=== PATIENT | female | born 1975 | race Caucasian/White ===

== ENCOUNTER 2016-12-09 15:55 | Emergency (ER) | payer OTHER ==
[~2016-12-09 15:55] MED LIST: CIPROFLOXACN500 MG PO; KLONOPIN0.5 MG PO; TRAZODONE100 MG PO
[2016-12-09 16:02] VITALS: BP 131/89
[2016-12-09 17:44] LABS: URINE BILIRUBIN - DIPSTICK NEGATIVE (NEGATIVE); URINE BLOOD DIPSTICK NEGATIVE (NEGATIVE); URINE CLARITY CLEAR; URINE COLOR YELLOW; URINE GLUCOSE - DIPSTICK NEGATIVE (NEGATIVE); URINE KETONE NEGATIVE (NEGATIVE); URINE LEUK ESTERASE NEGATIVE (NEGATIVE); URINE NITRITE - DIPSTICK NEGATIVE (Negative); URINE PH 5.5 (4.5-8.0); URINE PROTEIN - DIPSTICK NEGATIVE (NEG-TRACE)
[2016-12-09 17:48] LABS: HEMATOCRIT 32.5 % (37.0-47.0); IMMATURE GRANULOCYTES 0.4 % (0.0-1.0); MEAN CELL VOLUME 74.5 fL CALC (80.0-100.0); MEAN CORPUSCULAR HGB 22.9 pG CALC (26.0-32.0); MEAN CORPUSCULAR HGB CONC 30.8 g/L CALC (32.0-36.0); NEUT# 4.51 thou/uL (2.00-7.15); RED BLOOD COUNT 4.36 mill/uL (4.20-5.60); RED CELL DISTRI WIDTH 19.4 % (11.5-15.5)
[2016-12-09 18:02] LABS: ALBUMIN 4.1 g/dL (3.2-5.0); ALKALINE PHOSPHATASE 91 u/l (38-126); ANION GAP 17 (6-22 (CALC)); BILIRUBIN, TOTAL 0.5 mg/dL (0.0-1.4); BUN 12 mg/dL (7-17); BUN/CREATININE RATIO 18 (12-20 (CALC)); CALCIUM 8.8 mg/dL (8.4-10.2); CARBON DIOXIDE 22 mmol/l (22-30); CHLORIDE 103 mmol/l (95-108); CREATININE 0.6 mg/dL (0.5-1.0); GFR > 60 ML/MIN (>=60 (CALC)); GFR FOR AFR.AMER. > 60 ML/MIN (>=60 (CALC)); GLUCOSE 94 mg/dL (65-105); POTASSIUM 4.4 mmol/l (3.5-5.1); SGOT/AST 21 u/l (14-36); SGPT/ALT 31 u/l (9-52); SODIUM 138 mmol/l (137-146); TOTAL PROTEIN 7.2 g/dL (6.3-8.2)
[2016-12-09] MEDS ORDERED: ULTRAM50 M1 PO (18:48)
[2016-12-09] MEDS ORDERED: CEPHALEXIN500 MG PO (18:48)
== END 2016-12-09 18:58 | disposition home or self-care (01) | DRG 816 ==
LOC: ED 15:55
PROVIDERS: Emergency Medicine
DX: I88.8 Other nonspecific lymphadenitis (principal); R50.9 Fever, unspecified

== ENCOUNTER 2017-07-24 06:26 | Emergency (ER) | payer OTHER ==
[~2017-07-24] VITALS: Ht 162.6 cm; Wt 92.0 kg
[~2017-07-24 06:26] MED LIST changes: +CEPHALEXIN500 MG PO; +ULTRAM50 M1 PO
[2017-07-24] MEDS ORDERED: TRAMADOL HYDROC50 MG PO (07:42)
[2017-07-24 08:02] VITALS: BP 135/74
== END 2017-07-24 08:15 | disposition home or self-care (01) | DRG 563 ==
LOC: ED 06:26
DX: S83.241A Other tear of medial meniscus, current injury, right knee, initial encounter (principal)
CPT/HCPCS: L1830

== ENCOUNTER 2018-08-06 12:40 | Emergency (ER) | payer OTHER ==
[~2018-08-06] VITALS: Ht 162.6 cm; Wt 86.0 kg
[~2018-08-06 12:40] MED LIST changes: +TRAMADOL HYDROC50 MG PO
[2018-08-06] MEDS ORDERED: GABAPENTIN100 MG PO (13:09)
[2018-08-06] MEDS ORDERED: PROZAC20 MG PO (13:09)
[2018-08-06] MEDS ORDERED: CLONIDINE0.1 MG PO (13:10)
[2018-08-06 14:58] LABS: URINE BILIRUBIN - DIPSTICK NEGATIVE (NEGATIVE); URINE BLOOD DIPSTICK NEGATIVE (NEGATIVE); URINE COLOR YELLOW; URINE GLUCOSE - DIPSTICK NEGATIVE (NEGATIVE); URINE KETONE TRACE mg/dL (NEGATIVE); URINE LEUK ESTERASE NEGATIVE (NEGATIVE); URINE NITRITE - DIPSTICK NEGATIVE (Negative); URINE PH 5.5 (4.5-8.0); URINE PROTEIN - DIPSTICK NEGATIVE (NEG-TRACE); URINE SPECIFIC GRAVITY <=1.005; URINE UROBILINOGEN - DIPSTICK 0.2 E.U./dL (0.2)
[2018-08-06 14:59] LABS: HEMATOCRIT 35.1 % (37.0-47.0); HEMOGLOBIN 11.1 g/dl (12.0-16.0); IMMATURE GRANULOCYTES 0.3 % (0.0-5.0); MEAN CORPUSCULAR HGB 26.9 pG CALC (26.0-32.0); MEAN CORPUSCULAR HGB CONC 31.6 g/L CALC (32.0-36.0); NEUT# 4.13 thou/uL (2.00-7.15); RED BLOOD COUNT 4.13 mill/uL (4.20-5.60); RED CELL DISTRI WIDTH 19.2 % (11.5-15.5)
[2018-08-06 15:16] LABS: ALBUMIN 4.8 g/dL (3.2-5.0); ALKALINE PHOSPHATASE 101 u/l (38-126); ANION GAP 16 (6-22 (CALC)); BILIRUBIN, TOTAL 1.1 mg/dL (0.0-1.4); BUN 9 mg/dL (7-17); BUN/CREATININE RATIO 17 (12-20 (CALC)); CARBON DIOXIDE 25 mmol/l (22-30); CHLORIDE 98 mmol/l (95-108); CREATININE 0.5 mg/dL (0.5-1.0); GFR > 60 ML/MIN (>=60 (CALC)); GFR FOR AFR.AMER. > 60 ML/MIN (>=60 (CALC)); POTASSIUM 4.3 mmol/l (3.5-5.1); SGOT/AST 30 u/l (14-36); SODIUM 136 mmol/l (137-146)
[2018-08-06 15:43] VITALS: BP 129/74
[2018-08-06] MEDS ORDERED: PROTONIX40 MG PO (15:50)
== END 2018-08-06 16:16 | disposition home or self-care (01) | DRG 93 ==
LOC: ED 12:40
DX: R43.8 Other disturbances of smell and taste (principal); R10.13 Epigastric pain; K27.9 Peptic ulcer, site unspecified, unspecified as acute or chronic, without hemorrhage or perforation; K21.9 Gastro-esophageal reflux disease without esophagitis; Z98.84 Bariatric surgery status
CPT/HCPCS: S0164

== ENCOUNTER 2021-07-17 17:03 | Observation (INO) | payer OTHER ==
[~2021-07-17] VITALS: Ht 162.6 cm; Wt 88.0 kg
[~2021-07-17 17:03] MED LIST changes: +CLONIDINE0.1 MG PO; +GABAPENTIN100 MG PO; +PROTONIX40 MG PO; +PROZAC20 MG PO
--- NOTE | 2021-07-17 17:45 | NUR ---
PT AMB TO ROOM HOLDING HER STOMACH
--- NOTE | 2021-07-17 18:28 | NUR ---
PATIENT MEDICATED PER ORDERD. SHE IS AWARE OF PLAN OF CARE AND WAIT TIME. CALL VALENTINE WITHIN REACH.
[2021-07-17 18:45] LABS: HEMATOCRIT 37.5 % (37.0-47.0); HEMOGLOBIN 11.5 g/dl (12.0-16.0); IMMATURE GRANULOCYTES 0.2 % (0.0-5.0); MEAN CORPUSCULAR HGB 24.4 pG CALC (26.0-32.0); MEAN CORPUSCULAR HGB CONC 30.7 g/dL CAL (32.0-36.0); NEUT# 9.39 thou/uL (2.00-7.15); RED BLOOD COUNT 4.71 mill/uL (4.20-5.60); RED CELL DISTRI WIDTH 15.1 % (11.5-15.5)
[2021-07-17 18:46] LABS: MEAN CELL VOLUME 79.6 fL CALC (80.0-100.0)
--- NOTE | 2021-07-17 19:00 | NUR ---
REPORT TO VERONICA RAWLS.
[2021-07-17 19:01] LABS: ALBUMIN 4.7 g/dL (3.2-5.0); ALKALINE PHOSPHATASE 93 u/l (38-126); AMYLASE 70 u/l (30-110); ANION GAP 18 (6-22 (CALC)); BILIRUBIN, TOTAL 0.8 mg/dL (0.0-1.4); BUN 15 mg/dL (7-17); BUN/CREATININE RATIO 21 (12-20 (CALC)); CARBON DIOXIDE 22 mmol/l (22-30); CHLORIDE 100 mmol/l (95-108); CREATININE 0.7 mg/dL (0.5-1.0); ETHYL ALCOHOL 0 mg/dl (0-30); GFR > 60 ML/MIN (>=60 (CALC)); GFR FOR AFR.AMER. > 60 ML/MIN (>=60 (CALC)); LIPASE 77 u/l (23-300); POTASSIUM 4.1 mmol/l (3.5-5.1); SGOT/AST 26 u/l (14-36); SODIUM 135 mmol/l (137-146); TOTAL PROTEIN 8.2 g/dL (6.3-8.2)
--- NOTE | 2021-07-17 19:17 | NUR ---
PT MOVED TO ROOM 8, HIGHER LEVEL OF CARE INDICATED
--- NOTE | 2021-07-17 19:30 | NUR ---
PT REPORTS PAIN IMPROVED AFTER MEDICATION, BUT CAN TELL IT IS NOW RETURNING. PT RATES PAIN AT 7/10. PT WITH +BOWEL SOUNDS X4. URINE COLLECTED AND TO LAB. PT WITH CALL LIGHT IN REACH, SO AT THE BEDSIDE. PT STABLE.
--- NOTE | 2021-07-17 19:56 | NUR ---
PT ABLE TO PROVIDE URINE, COLLECTED AND TO LAB. PT RESTING, LYING ON LEFT SIDE. PT DENIES NEEDS, SON AT THE BEDSIDE.
[2021-07-17 20:18] LABS: URINE BILIRUBIN - DIPSTICK NEGATIVE (NEGATIVE); URINE BLOOD DIPSTICK MODERATE (NEGATIVE); URINE COLOR YELLOW; URINE GLUCOSE - DIPSTICK NEGATIVE (NEGATIVE); URINE KETONE 15 mg/dL (NEGATIVE); URINE LEUK ESTERASE NEGATIVE (NEGATIVE); URINE PROTEIN - DIPSTICK NEGATIVE (NEG-TRACE); URINE UROBILINOGEN - DIPSTICK 0.2 E.U./dL (0.2)
[2021-07-17 20:24] LABS: URINE NITRITE - DIPSTICK NEGATIVE (Negative)
--- NOTE | 2021-07-17 20:30 | NUR ---
PT RESTING ON ED BED WITH WARM BLANKET. PT'S AT THE BEDSIDE. ADVISED OF WAIT TIME. DENIES NEEDS.
[2021-07-17 20:36] LABS: URINE SQUAMOUS EPITHELIAL CELL FEW EPI/hpf (0-FEW)
--- NOTE | 2021-07-17 20:50 | NUR ---
CALL PLACED TO MED/SURG TO GIVE SBAR REPORT-NO ONE AVAILABLE AT THIS TIME.
--- NOTE | 2021-07-17 21:21 | NUR ---
SBAR REPORT CALLED TO VERONICA CAMARA
--- NOTE | 2021-07-17 21:25 | NUR ---
PT TAKEN BY WHEELCHAIR TO MED/SURG. PAPERWORK AND BELONGINGS HANDED OFF TO VERONICA CAMARA. PT IN STABLE CONDITION AT TIME OF ADMISSION.
--- NOTE | 2021-07-17 21:30 | NUR ---
PT RESTING ON ED BED, AT THE BEDSIDE. PT ADVISED OF WAIT TIME. DENIES NEEDS AT THIS TIME.
[2021-07-17 21:34] VITALS: BP 120/68
--- NOTE | 2021-07-17 22:29 | NUR ---
PATIENT ADMITTED FROM ER VIA WHEELCHAIR WITH ER STAFF IN ATTENDANCE. PATIENT IS ABLE TO TRANSFER TO THE BED HERSELF. PATIENT ADMITTED FOR BOWEL OBSTRUCTION. STATES THAT SHE HAS BEEN HAVE ABD PAIN FOR A FEW DAYS AND CAME IN TO THE ER TO HAVE EVALUATED. ABD IS SOFT WITH BS+. LAST BM WAS YESTERDAY AND WAS NORMAL PER PATIENT. DEN IES ANY DIFFICULTY WITH URINATION. LAST MENSTRAL CYCLE STARTED 07/16/21. LUNGS ARE CLEAR. NO PERIPHERAL EDEMA NOTED. PULSES ARE PALPABLE. IV SITE TO RAC INTACT-GOOD BLOOD RETURN. IVF NS HUNG AND INFUSING AT 125CC/HR. PATIENT IS ON CLEAR LIQUIDS AND PROVIDED WITH SOME APPLE JUICE PER PATIENT REQUEST. ORIENTED TO ROOM AND SURROUNDINGS. INSTRUCTED ON USE OF NURSE CALL LIGHT SYSTEM AND TV REMOTE. SAFETY PRECAUTIONS REINFORCED. CALL LIGHT IN REACH. WILL CONT TO MONITOR.
[2021-07-18] VITALS: BP 94/55
[2021-07-18 04:00] VITALS: BP 93/49
--- NOTE | 2021-07-18 04:28 | NUR ---
PATIENT RESTING IN BED WITH EYES CLOSED AND RESPS EVEN AND UNLABORED AT THIS TIME. IVF PATENT AND INFUSING VIA RAC SITE AT 125CC/HR. SITE REMAINS HEALTHY AT THIS TIME. CALL LIGHT IN REACH. WILL CONT TO MONITOR.
[2021-07-18 08:15] VITALS: BP 90/52
--- NOTE | 2021-07-18 08:15 | NUR ---
PATIENT IS RESTING IN BED. ASSESSMENT DONE. PATIENT IS ALERT AND ORIENT X3. PATIENT DENIES PAIN. PATIENT STATED SHE HAD A SMALL BM AND PASSING GAS. RESPS EVEN UNLABORED. PATIENT DENIES NEEDS. CALL LIGHT IN REACH.
--- NOTE | 2021-07-18 11:27 | NUR ---
PATIENT BACK FROM CT. PATIENT DENIES PAIN IN ABD. PATIENT STATED SHE DOES HAVE A HEADACHE BUT DENIES PAIN MEDICATION AT THIS TIME. CALL LIGHT IN REACH.
--- NOTE | 2021-07-18 13:19 | NUR ---
Discharge instructions given. Patient verbalizes understanding of same. Discharged in stable condition via Wheelchair to Home with spouse. All belongings sent with pt.
== END 2021-07-18 13:19 | disposition home or self-care (01) | DRG 392 ==
LOC: ED 17:03 → ED-I 19:59 → ED 20:12 → MS2 20:13
PROVIDERS: ADMIT Surgery; ATTEND Surgery
DX: R10.84 Generalized abdominal pain (principal); Z23 Encounter for immunization; Z98.84 Bariatric surgery status; Z87.11 Personal history of peptic ulcer disease; Z20.822 Contact with and (suspected) exposure to COVID-19
CPT/HCPCS: G0378; Q9967; S0164

== ENCOUNTER 2022-09-29 10:39 | Day surgery (SDC) | payer OTHER ==
[~2022-09-29] VITALS: Ht 162.6 cm; Wt 87.1 kg
[~2022-09-29 10:39] MED LIST changes: +BENZONATATE200 MG PO; +D3 HIGH POT5000 UNIT PO; +FISH OIL1 CAP PO; +IMITREX100 M1 PO; +POTASSIUM99 MG PO; +TIZANIDINE HCL2 MG PO
[2022-09-29 12:11] VITALS: BP 114/66
== END 2022-09-29 12:30 | disposition home or self-care (01) | DRG 951 ==
LOC: ENDO 10:39 → ORM 11:00 → ENDO 12:30 → ORM 12:45
PROVIDERS: ATTEND Surgery
PROC: 0DJD8ZZ Inspection of Lower Intestinal Tract, Via Natural or Artificial Opening Endoscopic (ICD-10-PCS; principal; 2022-09-29)
DX: Z12.11 Encounter for screening for malignant neoplasm of colon (principal); K57.30 Diverticulosis of large intestine without perforation or abscess without bleeding; K64.8 Other hemorrhoids; Z80.0 Family history of malignant neoplasm of digestive organs; Z98.84 Bariatric surgery status